=== PATIENT | male | born 1955 ===

== ENCOUNTER → 2018-04-30 21:17 | Outpatient (REF) | payer OTHER, MEDICAID, SELFPAY ==
[2018-05-01 00:53] LABS: Hemoglobin A1C% w Est Avg Glu 6.3 % (4.0-6.0)
== END ==
LOC: LAB 21:17
PROVIDERS: Visit Provider Family Medicine
DX: E11.9 Type 2 diabetes mellitus without complications (principal)
CPT/HCPCS: 36415; 82947; 82950; 83036